=== PATIENT | male | born 1965 | race Caucasian/White ===

== ENCOUNTER 2019-11-06 12:45 | Emergency (ER) | payer OTHER, SELFPAY ==
[2019-11-06 12:50] VITALS: BP 131/92; PULSE 82; RESP 20; O2SAT 99; BMI 39.1
--- NOTE | 2019-11-06 13:03 | DI.RAD.S_ITS ---
PROCEDURE: XR CHEST 1V INDICATIONS: Chest pain, diaphoresis TECHNIQUE: One view of the chest was acquired. COMPARISON: None. FINDINGS: Surgical changes and devices: None. Lungs and pleura: Lungs are clear. No pleural effusions or pneumothorax. Mediastinum: Mediastinal contours appear normal. Heart size is normal. Bones and chest wall: No suspicious bony lesions. Overlying soft tissues appear unremarkable. IMPRESSION: Normal for age, source of current chest pain symptoms is not seen. Dictated by: Elmer Salas M.D. on 11/06/2019 at 13:27 Approved by: Elmer Salas M.D. on 11/06/2019 at 13:28
--- NOTE | 2019-11-06 13:08 | ED_ITS ---
HPI - Anxiety General Chief Complaint: Anxiety Stated Complaint: numbness tingling, h/o anxiety Time Seen by Provider: 11/06/19 12:52 Source: patient and EMS Mode of arrival: EMS History of Present Illness HPI narrative: 54-year-old gentleman with a history of hypertension and mild anxiety controlled with behavioral methods presents by EMS complaining of general malaise an episode of significant diaphoresis hyperventilation that led to tingling in all 4 extremities and said that he was going to pass out. He is feeling better by time of arrival in the emergency department but still mildly anxious. He states that yesterday he felt absolutely normal. He woke this morning felt more tired in general malaise and at lunchtime while he was at work have the sense that he was going to pass out and then experienced dry heaves. No actual vomiting, fevers, diarrhea, chest pain. Related Data Home Medications Medication Instructions Recorded Confirmed lisinopril-hydrochlorothiazide 2 tab PO DAILY 11/06/19 ofloxacin 1 drp EYE-BOTH QID 11/06/19 11/06/19 sildenafil (pulm.hypertension) 20 - 100 mg PO .ONCE PRN MDD 5 tabs 11/06/19 11/06/19 Review of Systems Review of Systems ROS Unobtainable: All systems reviewed & are unremarkable except as noted in HPI and below Patient History Social History Smoking Status: Never smoker Smoking Status: Never smoker alcohol intake frequency: 3 or more drinks per day Substance Use Type: does not use Exam Narrative Exam Narrative: General: Healthy appearing, in mild distress. Able to give a complete and coherent history. Well-nourished well-developed HEENT: Moist mucous membranes, normal sclera with reactive pupils, Neck: No JVD, supple Respiratory: Lungs are clear to auscultation, no wheezing no rales no rhonchi. Full and symmetrical air movement Cardiac: Regular rate and rhythm no murmurs no bruits Abdomen: Soft nontender good bowel tones, no flank pain Skin: Warm and dry, no rashes. No current diaphoresis however his shirt is damp and from the episode he describes prior to arrival Neurologic: Grossly neurologically intact with no obvious asymmetries or abnormalities Extremities: No trauma, well perfused Psych: Cooperative, appropriate insight and affect Initial Vital Signs Initial Vital Signs: Vital Signs Pulse Rate 82 11/06/19 12:50 Respiratory Rate 20 11/06/19 12:50 Blood Pressure 131/92 H 11/06/19 12:50 Pulse Oximetry 99 11/06/19 12:50 Course Orders Ordered: ED Orders 11/06/19 13:03 XR chest 1V Stat EKG-12 Lead Stat 11/06/19 13:16 Complete Blood Count AUTO DIFF Stat Comprehensive Metabolic Panel Stat Troponin & CK Cardiac Panel Stat Sodium Chloride (Normal Saline 0.9%) 1,000 mls @ 150 mls/hr IV CONT ROSE Vital Signs Vital signs: Vital Signs - 8 hr 11/06/19 12:50 11/06/19 13:17 11/06/19 14:20 Pulse Rate 82 90 93 H Respiratory Rate 20 22 20 Blood Pressure 131/92 H Blood Pressure [Left Arm] 127/79 114/88 Pulse Oximetry 99 99 97 MDM - Anxiety Medical Records Attestation: I reviewed the patient's medical records. Lab Data Attestation: I reviewed the patient's lab results. Result diagrams: 11/06/19 13:16 11/06/19 13:16 Labs: Lab Results 11/06/19 11/06/19 Range/Units 13:16 13:16 WBC 7.2 (4.5-11.0) X10^3/uL RBC 5.23 (4.5-5.9) X10^6/uL Hgb 15.3 (13.5-17.5) g/dL Hct 44.1 (41-53) % MCV 84.2 (80-100) fL MCH 29.3 (26-34) PG MCHC 34.8 (30-36) % RDW 12.5 (11.6-14.8) % Plt Count 196 (150-400) X10^3/uL Neut % (Auto) 71.2 (50-75) % Lymph % (Auto) 19.9 L (25-40) % [place] % (Auto) 7.4 (3-14) % Eos % (Auto) 0.7 L (2-4) % Baso % (Auto) 0.8 (0-2) % Neut # (Auto) 5100 (7669-3811) /uL Lymph # (Auto) 1400 (8598-2355) /uL [place] # (Auto) 500 (0-900) /uL Eos # (Auto) 100 (0-450) /uL Baso # (Auto) 100 (0-100) /uL Sodium 136 L (137-145) mmol/L Potassium 3.8 (3.4-5.1) mmol/L Chloride 100 (98-107) mmol/L Carbon Dioxide 25 (22-32) mmol/L BUN 21 H (9-20) mg/dL Creatinine 1.10 (0.66-1.25) mg/dL Estimated GFR > 60.0 (>60) mL/min BUN/Creatinine Ratio 19.1 (6-22) Glucose 127 H (70-100) mg/dL Calcium 9.3 (8.4-10.2) mg/dL Total Bilirubin 0.9 (0.2-1.3) mg/dL AST 30 (17-59) IU/L ALT 39 (<50) IU/L Alkaline Phosphatase 86 (38-126) U/L Total Creatine Kinase 166 (55-170) U/L CK-MB (CK-2) 0.73 (<2.37) ng/mL CK-MB (CK-2) Rel Index 0.4 L (1.5-5.0) % Troponin I < 0.012 (0.01-0.034) ng/mL Total Protein 7.7 (6.3-8.2) g/dL Albumin 4.5 (3.5-5.0) g/dL Globulin 3.2 (1.7-4.1) g/dL Albumin/Globulin Ratio 1.4 (1.0-2.8) Imaging Data Chest x-ray: Radiologist's impression: IMPRESSION: Normal for age, source of current chest pain symptoms is not seen. Dictated by: Elmer Salas M.D. on 11/06/2019 at 13:27 ECG Data Attestation: I personally reviewed and interpreted this ECG as follows: Interpretation: Sinus rhythm at a rate of 84 Q-waves in leadIII No acute ischemic changes Normal axis and intervals MDM Narrative Medical decision making narrative: Patient is feeling better with normalized blood pressure. Nausea is resolved no dizziness. Labs reviewed with both he and his in all questions are answered. I find no evidence of acute life- threatening illness, cardiac syndrome, infection, or reason to be hospitalized. Safe for home discharge at this time. Discharge Plan Departure Patient Disposition: Home Clinical Impression: Near syncope Nausea & vomiting Qualifiers: Vomiting type: unspecified Vomiting Intractability: non-intractable Qualified Code(s): R11.2 - Nausea with vomiting, unspecified Instructions: DI for Syncope in Adults (Fainting), Nausea and Vomiting-Adult Activity Restrictions/Additional Instructions: Thank you for coming in today I'm glad you're feeling better. Labs I didn't find any life-threatening issues to explain your symptoms today. Specifically I found evidence for blood loss, pulmonary embolism, heart attack or heart attack like syndrome. It may be that you are coming down with a viral syndrome. I suspect that your symptoms will improve without additional intervention. If you find the you are getting worse, developing a fever, actually vomiting, having additional pain or near passing out episodes this would all the reasons to return to the emergency room for further evaluation. I hope you feel better Prescriptions: No Action sildenafil (pulm.hypertension) 20 mg tablet 20 - 100 mg PO .ONCE MDD 5 tabs PRN (Reason: Erectile Dysfunction) RF: 0 ofloxacin 0.3 % drops 1 drp EYE-BOTH QID RF: 0 lisinopril-hydrochlorothiazide 10-12.5 mg tablet 2 tab PO DAILY RF: 0 Referrals: Rodney Tomlinson MD [Primary Care Provider] - Stand Alone Forms: Work Release Note
[2019-11-06 13:17] VITALS: BP 127/79; PULSE 90; RESP 22; O2SAT 99
[2019-11-06 13:26] LABS: Add Manual Diff / Slide Review NO; Basophils Absolute Auto 100 /uL (0-100); Basophils Percent Auto 0.8 % (0-2); Eosinophils Absolute Auto 100 /uL (0-450); Eosinophils Percent Auto 0.7 % (2-4); Hematocrit 44.1 % (41-53); Hemoglobin 15.3 g/dL (13.5-17.5); Lymphocytes Absolute Auto 1400 /uL (1100-4500); Lymphocytes Percent Auto 19.9 % (25-40); Mean Corpuscular HGB Conc 34.8 % (30-36); Mean Corpuscular Hemoglobin 29.3 PG (26-34); Mean Corpuscular Volume 84.2 fL (80-100); Monocytes Absolute Auto 500 /uL (0-900); Monocytes Percent Auto 7.4 % (3-14); Neutrophils Absolute Auto 5100 /uL (1500-7000); Neutrophils Percent Auto 71.2 % (50-75); Platelet Count 196 X10^3/uL (150-400); Red Blood Cell Count 5.23 X10^6/uL (4.5-5.9); Red Cell Distribution Width 12.5 % (11.6-14.8); White Blood Cell Count 7.2 X10^3/uL (4.5-11.0)
[2019-11-06 13:41] LABS: Alanine Aminotransferase 39 IU/L (<50); Albumin 4.5 g/dL (3.5-5.0); Albumin Globulin Ratio 1.4 (1.0-2.8); Alkaline Phosphatase 86 U/L (38-126); Aspartate Aminotransferase 30 IU/L (17-59); BUN Creatinine Ratio 19.1 (6-22); Bilirubin Total 0.9 mg/dL (0.2-1.3); Blood Urea Nitrogen 21 mg/dL (9-20); Calcium 9.3 mg/dL (8.4-10.2); Carbon Dioxide 25 mmol/L (22-32); Chloride 100 mmol/L (98-107); Creatine Kinase 166 U/L (55-170); Estimated Glomerular Filt Rate > 60.0 mL/min (>60); Globulin 3.2 g/dL (1.7-4.1); Glucose 127 mg/dL (70-100); HEMOLYSIS < 15 (0-50); Potassium 3.8 mmol/L (3.4-5.1); Sodium 136 mmol/L (137-145); Total Protein 7.7 g/dL (6.3-8.2)
[2019-11-06 13:52] LABS: Troponin I < 0.012 ng/mL (0.01-0.034)
[2019-11-06 13:56] LABS: CKMB % Relative Index 0.4 % (1.5-5.0); Creatine Kinase MB 0.73 ng/mL (<2.37)
[2019-11-06 14:20] VITALS: BP 114/88; PULSE 93; RESP 20; O2SAT 97
--- NOTE | 2019-11-06 14:53 | PC.NURSE ---
Pt came out of room and states we have not done lab work and she has not seen Per pt, just got here and he does not really remember what he has had. I looked in chart and updated and pt that everything has been done. I updated primary RN Arielle of same.
[2019-11-06 15:27] VITALS: BP 132/91; PULSE 101; RESP 20; O2SAT 98
[2019-11-06 16:17] VITALS: BP 131/87; PULSE 90; RESP 17; TEMP 37.1; O2SAT 100
--- NOTE | 2019-11-06 16:17 | PC.NURSE ---
At pt's request given copy of provider note
== END 2019-11-06 16:17 | disposition home or self-care (01) ==
PROVIDERS: Emergency Provider Emergency Medicine; PCP Family Medicine
DX: R55 Syncope and collapse (principal); R11.2 Nausea with vomiting, unspecified; I10 Essential (primary) hypertension; F41.9 Anxiety disorder, unspecified
CPT/HCPCS: 36415; 71045; 80053; 82550; 82553; 84484; 85025; 93005; 93010; 99284; 99285